=== PATIENT | female | born 1995 | race African-American/Black ===

== ENCOUNTER 2017-06-19 08:32 | Emergency (ER) | payer OTHER ==
[2017-06-19] MEDS ORDERED: LIDOCAINE 1% 2 ML VIAL ONE (10:02)
--- NOTE | 2017-06-19 10:13 | ED Physician Documentation ---
PD HPI SKIN - Stated complaint Stated Complaint: BUMP ON TAILBONE - Chief complaint Chief Complaint: General - History obtained from History obtained from: Patient - History of Present Illness Timing - onset: How many days ago (3) Timing - duration: Days (3) Timing - details: Gradual onset, Still present Location: Back Quality / character: Painful, Raised, Swelling. No: Draining Associated symptoms: Myalgias Contributing factors: Other (has known pilonidal cyst) Similar symptoms before: Diagnosis (pilonidal cyst) Recently seen: Not recently seen - Additional information Additional information: 21-year-old female who is recently returned from deployment began to develop some pain in her tailbone about 3 days ago. She has had something like this similarly with a pineal pilonidal cyst it is very inflamed now is very tender she has been on an 18 hour plane ride from [employer] got in yesterday morning. Pain is worsened overnight. He does have a palpable tender mass in the left upper buttocks area. Review of Systems Constitutional: reports: Myalgias, Fatigue. denies: Fever Eyes: denies: Decreased vision Ears: denies: Ear pain Nose: denies: Congestion Respiratory: denies: Cough GI: denies: Vomiting Skin: reports: Other (Abscess to the tip of the tailbone) Musculoskeletal: reports: Back pain PD PAST MEDICAL HISTORY - Past Medical History Cardiovascular: None Respiratory: None GI: None - Past Surgical History Past Surgical History: No - Present Medications Home Medications: Ambulatory Orders Medication Instructions Recorded Confirmed Control Pills 1 tab PO DAILY 06/28/16 07/03/16 Clindamycin [Cleocin] 300 mg PO QID 06/28/16 07/03/16 HYDROcod/ACETAM 5/325 [[place] 5/325] 1 tab 07/03/16 HYDROcod/ACETAM 5/325 [[place] 5/325] 1 - 2 ea PO Q6H PRN #15 tablet 06/19/17 Sulfamethoxazole/Trimethoprim 1 each PO BID #14 tablet 06/19/17 [Sulfamethoxazole-Tmp Ds Tablet] - Allergies Allergies/Adverse Reactions: Allergies Allergy/AdvReac Type Severity Reaction Status Date / Time No Known Drug Allergies Allergy Verified 07/03/16 13:01 - Social History Does the pt smoke?: No Smoking Status: Never smoker Does the pt drink ETOH?: Yes Does the pt have substance abuse?: No - Immunizations Immunizations are current?: Yes PD ED PE NORMAL - Vitals Vital signs reviewed: Yes (Tachycardic and hypertensive) - General General: Alert and oriented X 3, Well developed/nourished, Other (The patient does appear to be in pain) - HEENT HEENT: Atraumatic, PERRL - Neck Neck: Supple, no meningeal sign - Respiratory Respiratory: No respiratory distress - Derm Derm: Normal color, Warm and dry, No rash, Other (There is a tender firm mass in the left superior portion of the gluteal fold at the end of the tailbone. Very does have fluid present by ultrasound.) - Extremities Extremities: No deformity, No edema - Neuro Neuro: No motor deficit, No sensory deficit Eye Opening: Spontaneous Motor: Obeys Commands Verbal: Oriented GCS Score: 15 - Psych Psych: Normal mood, Normal affect Results - Vitals Vitals: Vital Signs - 24 hr 06/19/17 08:41 Temperature 36.9 C Heart Rate 117 H Respiratory 20 Rate Blood Pressure 116/81 H O2 Saturation 100 Oxygen O2 Source Room air Procedures - Abscess I&D (location) Tailbone Preparation: Confirmed with ultrasound, Chlorhexadine, Lidocaine 1% Incision: Incised with scalpel, Purulent drainage (deep and a lot of pus), Loculations broken, Irrigated, Culture obtained Other: Pt tolerated well, Dressing applied, Antibiotic prescribed PD MEDICAL DECISION MAKING - ED course Complexity details: reviewed results, re-evaluated patient, considered differential, d/w patient ED course: 21-year-old female with a recurrent pilonidal cyst has pus deep in this section and the pus is relieved and the cavity is irrigated copiously. The abscess cavity is not packed. She is placed on Septra DS. Culture is obtained. Departure - Departure Disposition: 01 Home, Self Care Clinical Impression: Pilonidal abscess Condition: Stable Instructions: ED Cyst Pilonidal Infected IandD Follow-Up: Jeancarlos Sams PA-C [Primary Care Provider] - Prescriptions: HYDROcod/ACETAM 5/325 [[place] 5/325] 1 - 2 ea PO Q6H PRN #15 tablet PRN Reason: Pain Sulfamethoxazole/Trimethoprim [Sulfamethoxazole-Tmp Ds Tablet] 1 each PO BID # 14 tablet Comments: Today in the Emergency Department your blood pressure was elevated. This can happen from the stress of the visit itself, from a current illness or circumstance or from uncontrolled hypertension. If you take blood pressure medications take your usual mediations, have your blood pressure re-checked in an appropriate setting and follow up any elevation with your primary care doctor. Today it appears you have a pilonidal cyst and this cyst will keep reforming until the cyst sac is completely removed. This is best done when the infection is completely controlled and walled off. This is done usually by a surgeon. Have your primary care doctor refer you to a surgeon for removal when this episode is completely resolved.
[2017-06-19 10:36] VITALS: BP 105/75
== END 2017-06-19 10:38 | disposition home or self-care (01) ==
LOC: ED 08:32
DX: L05.01 Pilonidal cyst with abscess (principal); R03.0 Elevated blood-pressure reading, without diagnosis of hypertension
CPT/HCPCS: 10080; 87070; 87205; 99283

== ENCOUNTER 2017-06-25 07:45 | Emergency (ER) | payer OTHER ==
--- NOTE | 2017-06-25 08:29 | ED Physician Documentation ---
PD HPI SKIN - Stated complaint Stated Complaint: BACK BUMP/PX - Chief complaint Chief Complaint: Wound - History obtained from History obtained from: Patient - History of Present Illness Timing - onset: How many days ago (3) Timing - duration: Days (3) Timing - details: Gradual onset, Still present Location: Other (buttocks) Quality / character: Painful, Raised, Swelling. No: Draining Associated symptoms: Myalgias. No: Fever Similar symptoms before: Diagnosis (abscess) Recently seen: Emergency Dept - Additional information Additional information: 21-year-old female the history of a pilonidal cyst was seen in the emergency department here 6 days ago and had incision and drainage of her cyst. She has been placed on some sulfamethoxazole trimethoprim. She did well for the first 3 days wound sealed over and began to swell again. She has had worsening pain and swelling and returns to the emergency department for reevaluation. She had a deep abscess and packing was not placed on her initial visit. Review of Systems Constitutional: denies: Fever Respiratory: denies: Cough GI: denies: Vomiting Skin: reports: Lesions. denies: Rash Musculoskeletal: reports: Back pain Neurologic: denies: Generalized weakness, Focal weakness, Numbness PD PAST MEDICAL HISTORY - Past Medical History Cardiovascular: None Respiratory: None GI: None - Past Surgical History Past Surgical History: No - Present Medications Home Medications: Ambulatory Orders Medication Instructions Recorded Confirmed Control Pills 1 tab PO DAILY 06/28/16 06/25/17 HYDROcod/ACETAM 5/325 [[place] 5/325] 1 - 2 ea PO Q6H PRN #15 tablet 06/19/17 Sulfamethoxazole/Trimethoprim 1 each PO BID #14 tablet 06/19/17 06/25/17 [Sulfamethoxazole-Tmp Ds Tablet] HYDROcod/ACETAM 5/325 [[place] 5/325] 1 - 2 ea PO Q6H PRN #15 tablet 06/25/17 Sulfamethoxazole/Trimethoprim 1 each PO BID #14 tablet 06/25/17 [Sulfamethoxazole-Tmp Ds Tablet] - Allergies Allergies/Adverse Reactions: Allergies Allergy/AdvReac Type Severity Reaction Status Date / Time No Known Drug Allergies Allergy Verified 07/03/16 13:01 - Social History Does the pt smoke?: No Smoking Status: Never smoker Does the pt drink ETOH?: Yes Does the pt have substance abuse?: No - Immunizations Immunizations are current?: Yes - POLST Patient has POLST: No PD ED PE NORMAL - Vitals Vital signs reviewed: Yes (Normal) - General General: Well developed/nourished, Other (21-year-old female whimpering in pain. ) - HEENT HEENT: Atraumatic, PERRL, EOMI - Respiratory Respiratory: No respiratory distress - Back Back: Other (Over the left upper buttock area at the left margin of the tailbone is an area approximately 4 cm x 3 cm that is raised and tender. There are 2 prior scars present from prior I&D. There is extremely tender.) - Derm Derm: Normal color, Warm and dry - Extremities Extremities: No deformity, No edema - Neuro Neuro: No motor deficit, No sensory deficit Eye Opening: Spontaneous Motor: Obeys Commands Verbal: Oriented GCS Score: 15 - Psych Psych: Normal mood, Normal affect Results - Vitals Vitals: Vital Signs - 24 hr 06/25/17 07:51 Temperature 36.6 C Heart Rate 88 Respiratory 16 Rate Blood Pressure 114/77 O2 Saturation 100 Oxygen O2 Source Room air Procedures - Abscess I&D (location) pilonidal left Preparation: Chlorhexadine, Lidocaine 1% Incision: Incised with scalpel, Purulent drainage (copious pus under pressure.) , Loculations broken, Irrigated, Packed, Culture obtained Other: Pt tolerated well, Dressing applied, Antibiotic prescribed PD MEDICAL DECISION MAKING - ED course Complexity details: reviewed old records, reviewed results, considered differential, d/w patient ED course: 21-year-old female who has failed I&D of a pilonidal cyst without packing. Today the abscess cavity is opened again there is copious pus draining from the area and the cavity is irrigated copiously with 500 mL's of saline and packed with approximately 40cm of 1/2 inch iodoform gauze. Departure - Departure Disposition: 01 Home, Self Care Clinical Impression: Pilonidal abscess Condition: Stable Instructions: ED Cyst Pilonidal Infected IandD Follow-Up: [facility] [Provider Group] Prescriptions: HYDROcod/ACETAM 5/325 [[place] 5/325] 1 - 2 ea PO Q6H PRN #15 tablet PRN Reason: Pain Sulfamethoxazole/Trimethoprim [Sulfamethoxazole-Tmp Ds Tablet] 1 each PO BID # 14 tablet Comments: Return here in 2 days for wound check and packing removal. Forms: Activity restrictions
[2017-06-25] MEDS ORDERED: LIDOCAINE 1% 2 ML VIAL SUBQ STA (09:04)
[2017-06-25 10:17] VITALS: BP 116/74
== END 2017-06-25 10:16 | disposition home or self-care (01) ==
LOC: ED 07:45
DX: L05.01 Pilonidal cyst with abscess (principal)
CPT/HCPCS: 10060; 10080; 87070; 87205; 99283